=== PATIENT | female | born 1990 | race Caucasian/White ===

== ENCOUNTER 2021-10-15 22:55 | Inpatient (IN) ==
[2021-10-15] MEDS ORDERED: Lidocaine 1% 20 ML MDV INFILT PRN (22:58)
[2021-10-15] MEDS ORDERED: Naloxone 0.4 MG/ML INJ IVP PRN (22:58)
[2021-10-15] MEDS ORDERED: Famotidine 20 MG/2 ML VIAL IVP PRN (22:58)
[2021-10-15] MEDS ORDERED: Azithromycin 500 MG in 0.9 % Sodium Chloride 250 ML IVPB PRN (22:58)
[2021-10-15] MEDS ORDERED: Metoclopramide 10 MG/2 ML VIAL IVP PRN (22:58)
[2021-10-15] MEDS ORDERED: Ondansetron 4 MG/2 ML VIAL IVP PRN (22:58)
[2021-10-15] MEDS ORDERED: *HR* Nalbuphine 10 MG/ML AMPUL IV PRN (22:58)
[2021-10-15] MEDS ORDERED: Oxytocin 30 UNIT/503 ML BAG IVC SCH (23:00)
[2021-10-15 23:42] LABS: Amphetamine Screen,Urine Negative ng/mL (Cutoff=1000); Barbiturate Screen,Urine Negative ng/mL (Cutoff=200); Benzodiazepines Screen,Urine Negative ng/mL (Cutoff=300); Cannabinoid Screen,Urine Negative ng/mL (Cutoff = 50); Cocaine Screen,Urine Negative ng/mL (Cutoff= 300); Opiate Screen,Urine Negative ng/mL (Cutoff=300); Phencyclidine Screen,Urine Negative ng/mL (Cutoff=25)
[2021-10-15 23:46] LABS: Basophils % 0.2 %; Eosinophils # 0.1 K/mcL (0.0-0.6); Hematocrit 37.3 % (35.3-44.9); Hemoglobin 12.5 g/dL (11.5-15.4); Immature Granulocytes % 0.4 % (0-4); Lymphocytes # 2.7 K/mcL (0.6-4.6); Lymphocytes % 22.7 %; Mean Corpuscular HGB Conc 33.5 g/dL (31.6-35.5); Mean Corpuscular Hemoglobin 32.1 pg (28.0-33.3); Mean Corpuscular Volume 95.9 fL (83.0-100.0); Mean Platelet Volume 9.3 fL (9.4-12.4); Monocytes % 8.2 %; Neutrophils # 7.9 K/mcL (1.6-8.9); Platelet Count 400 K/mcL (140-400); Red Blood Count 3.89 M/mcL (3.82-4.97); Red Cell Distribution Width 13.4 % (11.5-14.5); Segmented Neutrophils % 67.5 %; White Blood Count 11.7 K/mcL (4.3-11.1)
[2021-10-16] MEDS: miSOPROStoL 25 MCG TABLET PO PRN ×2 (00:02→04:13)
[2021-10-16] MEDS: Ringers Solution, Lactated 1,000 ML IVC SCH ×2 (00:03→08:02)
[2021-10-16 00:11] LABS: Influenza A PCR Negative (Negative); Influenza B PCR Negative (Negative); Resp. Syncytial Virus PCR Negative (Negative); SARS-CoV-2 by PCR (In House) Negative (Negative)
[2021-10-16] MEDS ORDERED: Ropivacaine/PF 0.2% 20 ML VIAL EP ONE (07:26)
[2021-10-16] MEDS ORDERED: EPHEDrine 50 MG/ML VIAL IVP PRN (07:26)
[2021-10-16] MEDS ORDERED: *HR* FentaNYL (PF) 100 MCG/2 ML VIAL EP ONE (07:26)
[2021-10-16] MEDS ORDERED: Epidural Premix (fent/bupiv) 110 ML EP ONE (07:27)
[2021-10-16] MEDS ORDERED: Epidural Premix (fent/bupiv) 110 ML EP SCH (07:30)
[2021-10-16] MEDS ORDERED: OXYTOCIN/RINGERS LACTATE 10 UNIT/166.6 ML BAG IVC ONE (16:47)
[2021-10-16] MEDS ORDERED: Rho Immune Globulin 1,500 UNIT SYRINGE IM PRN (16:47)
[2021-10-16] MEDS ORDERED: Lanolin 7 G OINT...G. TP PRN (16:47)
[2021-10-16] MEDS ORDERED: Measles/Mumps/Rubella Vacc 0.5 ML VIAL SQ PRN (16:47)
[2021-10-16] MEDS ORDERED: Ondansetron ODT 4 MG TAB.RAPDIS SL PRN (16:47)
[2021-10-16] MEDS: Ibuprofen 600 MG TABLET PO SCH ×2 (17:12→19:05)
[2021-10-16] MEDS: Acetaminophen 325 MG TABLET PO SCH (18:07)
[2021-10-16] MEDS: Benzocaine/Menthol 56 GM AEROSOL SPRAY TP PRN (19:43)
[2021-10-16 22:09] VITALS: O2SAT 98
[2021-10-17] MEDS: Ibuprofen 600 MG TABLET PO SCH ×3 (01:55→13:51)
[2021-10-17] MEDS: Acetaminophen 325 MG TABLET PO SCH ×3 (01:56→13:50)
[2021-10-17 03:47] VITALS: PULSE 78
[2021-10-17 03:48] VITALS: BP 104/68; TEMP 98
[2021-10-17 04:36] LABS: Basophils % 0.2 %; Eosinophils # 0.1 K/mcL (0.0-0.6); Eosinophils % 0.7 %; Immature Granulocytes % 0.4 % (0-4); Mean Corpuscular HGB Conc 34.4 g/dL (31.6-35.5); Mean Corpuscular Hemoglobin 33.2 pg (28.0-33.3); Mean Corpuscular Volume 96.7 fL (83.0-100.0); Mean Platelet Volume 9.8 fL (9.4-12.4); Monocytes % 8.1 %; Neutrophils # 9.5 K/mcL (1.6-8.9); Platelet Count 365 K/mcL (140-400); Red Blood Count 3.31 M/mcL (3.82-4.97); Red Cell Distribution Width 13.5 % (11.5-14.5); Segmented Neutrophils % 74.6 %; White Blood Count 12.7 K/mcL (4.3-11.1)
[2021-10-17] MEDS ORDERED: Prenatal Vit/FA 1 EACH TABLET PO SCH (09:00)
[2021-10-17] MEDS: Benzocaine/Menthol 56 GM AEROSOL SPRAY TP PRN (13:51)
== END 2021-10-17 14:00 | disposition home or self-care (01) | DRG 806 ==
LOC: 1NENULAB 22:55 → 1NENUOBS 10-16 15:25
PROVIDERS: ADMIT Student in an Organized Health Care Education/Training Program; ATTEND Student in an Organized Health Care Education/Training Program